=== PATIENT | female | born 2000 | race Caucasian/White ===

== ENCOUNTER 2021-07-06 08:00 | Day surgery (SDC) | payer BC ==
[2021-07-04 13:45] VITALS: BMI 25.8
[~2021-07-06 08:00] MED LIST: ACETAMINOPHEN TAB 500 MG TAB PO PRN; DEXAMETHASONE SOD PHOSPHATE 4 MG/ML 1 ML VIAL IV ONE; DEXAMETHASONE SOD PHOSPHATE 4 MG/ML 1 ML VIAL IV PRN; FAMOTIDINE 20 MG/2 ML VIAL IV PRN; HYDROmorphone 0.5 MG/0.5 ML SYRINGE IVP PRN; LIDOCAINE 1% (10MG/ML) FOR IV START INTRADERMA PRN; MELOXICAM 7.5 MG TAB PO PRN; MIDAZOLAM 2 MG/2 ML VIAL IV PRN; ONDANSETRON 4 MG/2 ML VIAL IVP ONE; ONDANSETRON 4 MG/2 ML VIAL IVP PRN
[2021-07-06] MEDS: OXYMETAZOLINE 0.05% NASL SPRAY 1 SPRAY BOTTLE EA NOSTRIL PRN ×5 (08:28→08:48)
[2021-07-06] MEDS: LACTATED RINGERS 1,000 ML IV SCH ×2 (08:38→09:21)
[2021-07-06] MEDS ORDERED: LIDOCAINE 1% INJ 10MG/ML (20 ML MDV) ONE (09:23)
[2021-07-06] MEDS ORDERED: ROCURONIUM 10 MG/ML (5 ML VIAL) IV ONE (09:23)
[2021-07-06] MEDS ORDERED: fentaNYL (PF) 50 MCG/ML 2 ML AMP ONE (09:23)
[2021-07-06] MEDS ORDERED: MIDAZOLAM 2 MG/2 ML VIAL ONE (09:23)
[2021-07-06] MEDS ORDERED: PROPOFOL 10 MG/ML 20 ML VIAL IV ONE (09:23)
[2021-07-06] MEDS ORDERED: LIDOCAINE 1%-EPI 1:100,000 20 ML VIAL SUBMUCOSAL ONE ×4 (09:28→09:43)
[2021-07-06] MEDS ORDERED: FLUORESCEIN STRIPS 1 MG STRIP MISCELLANE ONE (09:29)
[2021-07-06] MEDS ORDERED: LACTATED RINGERS 1,000 ML IV ONE (10:25)
[2021-07-06 11:03] VITALS: TEMP 97.2
--- NOTE | 2021-07-06 11:18 | P.OP ---
Date of Procedure: 07/06/21 Preoperative Diagnosis: Deviated nasal septum, hypertrophy of inferior nasal turbinates, chronic sinusitis, sinonasal polyps/ethmoids Postoperative Diagnosis: same Procedure(s) Performed: Septoplasty Bilateral submucosal resection of inferior nasal turbinates bilaterally Bilateral functional endoscopic sinus surgery and/with removal of ethmoid polyps Anesthesia: ELLIE Surgeon: Nathan Canas Estimated Blood Loss (ml): 15 Pathology: other (sinonasal) Condition: stable Disposition: PACU Indications for Procedure: Patient has had constant sinonasal issues and has failed medical therapy and complains of constant sinus drainage nasal congestion etc. Since she's failed medical therapy and after long discussion we decided to proceed forward with functional endoscopic sinus surgery septoplasty and turbinate surgery. All risks, benefits and alternative therapies were discussed. Consent was obtained and all questions were answered. Operative Findings: Patient had a left septal deviation with large obstructive inferior turbinates. Ethmoid polyps were seen throughout and purulent material and diseased tissue was seen in the maxillary sinuses. Description of Procedure: This patient was taken to the operative room and placed in the supine position. A general inhalation anesthetic was administered to the patient by the department of anesthesia with a functioning IV line in place. The patient was monitored throughout the entire case by the department of anesthesia. The eyes were taped shut for protection. The patient was placed in a slight reverse Trendelenburg position. The patient had previously utilize Afrin nasal spray preoperatively. The nose was evaluated and the septum lateral nasal wall and inferior turbinates were injected with lidocaine 1% with epinephrine 1 100,000 bilaterally. Approximately 10 minutes were allowed wait for full vasoconstrictive effects to take place. At this point a caudal incision was made over the caudal portion of the left septum down to the mucoperichondrium. A mucoperichondrial flap was elevated on the left side and dissection was carried with use of tunnels posteriorly. We then made a crossover incision through the cartilage to the contralateral side a nd for the mucoperichondrial flap development was performed to the extent of visualization on the contralateral side. After the cartilage was freed with use of several crosshatching incisions and removal of some redundant strips of septal cartilage, the septum was straightened and placed back in the midline. The septum was sutured fixated to the ovarian groove. Excellent straightening occurred and the septum was visibly straight. Incision was closed with a 40 rapid Vicryl. We utilized a running nonlocking fashion for closure of the incision. A quilting stitch was used to reapproximate the septal flaps with use of a 40 rapid Vicryl. We then entered the nose with a 0 and 30 Rush ashley endoscope. Previous to this we did inject the lateral nasal wall and middle turbinate and uncinate process with lidocaine 1% with epinephrine 1 100,000. Approximately 10 minutes were allowed wait for full vasoconstrictive effects to take place. With use of a microdebrider and a pediatric backbiter, we took down the uncinate process bilaterally. We then opened the maxillary sinuses bilaterally. We utilized a microdebrider for this and entered the maxillary sinuses and removed diseased ti ssue. This was done bilaterally. After the maxillary sinuses were opened and the diseased tissue was removed we entered the ethmoid bulla and with use of a microdebrider and up-biting latashas and Jaymie, we followed the fovea frontalis through the basal lamella and into the posterior ethmoid air cells and did a total ethmoidectomy. We removed the anterior ethmoid air cells with use of a microdebrider and up-biting boss. After all the anterior ethmoid air cells were removed we did the same in the posterior ethmoid. A total ethmoidectomy was completed in that fashion with removal of all the anterior and posterior ethmoid air cells and diseased tissue. We reinspected the skull base there is no signs of any orbital penetration or signs of any intracranial penetration. The sugical site was reinspected after the xerogel was placed and no bleeding was seen. Intranasal splints were inserted and fixated at the end of the case. We utilized Davis nasal splints. There will be removed and the patient returns to the office. Attention was then paid to the inferior turbinates. The bilateral inferior turbinates were hypertrophic and obstructive. We entered the anterior portion of the inferior turbinates with use of a microdebrider. We remove bone and submucosal elements with use of a microdebrider bilaterally. The inferior turbinates underwent a submucosal resection with removal of submucosal tissue and bone. We obtained a much better and normal in size for breathing. The inferior turbinates were then outfractured and compressed with a [employer] nasal elevator. Excellent airway was obtained and was symmetric bilaterally. No bleeding was encountered.
[2021-07-06] MEDS ORDERED: oxyCODONE-APAP 5-325MG 1 EACH TAB ONE (12:09)
[2021-07-06] MEDS ORDERED: oxyCODONE-APAP 5-325MG 1 EACH TAB PO ONE (12:11)
[2021-07-06 13:45] VITALS: BP 132/76; PULSE 92; RESP 20
== END 2021-07-06 12:52 | disposition home or self-care (01) ==
LOC: OR 08:00
PROVIDERS: ATTEND Otolaryngology
DX: J34.3 Hypertrophy of nasal turbinates (principal); J34.2 Deviated nasal septum; J32.9 Chronic sinusitis, unspecified; J33.8 Other polyp of sinus; J45.909 Unspecified asthma, uncomplicated; F32.A Depression, unspecified; Z82.49 Family history of ischemic heart disease and other diseases of the circulatory system; Z83.42 Family history of familial hypercholesterolemia; Z83.49 Family history of other endocrine, nutritional and metabolic diseases; Z79.51 Long term (current) use of inhaled steroids; Z79.899 Other long term (current) drug therapy; Z91.09 Other allergy status, other than to drugs and biological substances
CPT/HCPCS: 81025; 88305; 88300; 30520; 31255; 30140; J2250; J0171; J1100; J2405; J2001; J3010; J2704

== ENCOUNTER 2023-05-07 08:34 | Inpatient (IN) | payer BC ==
[2023-05-07] MEDS ORDERED: KETOROLAC 15 MG/ML 1 ML VIAL ONE (09:11)
[2023-05-07] MEDS ORDERED: MORPHINE SULFATE (PF) 0.3 MG/0.3 ML SYR ONE (09:11)
[2023-05-07] MEDS ORDERED: TRANEXAMIC 1,000 MG/100ML-NACL 1,000 MG in EMPTY BAG 1 BAG IV PRN (09:15)
[2023-05-07] MEDS ORDERED: OXYTOCIN 10 UNIT/ML 1 ML VIAL IM PRN (09:15)
[2023-05-07] MEDS ORDERED: CARBOPROST TROMETHAMINE 250 MCG/ML 1 ML AMP IM PRN (09:15)
[2023-05-07] MEDS ORDERED: miSOPROStoL 200 MCG TAB PO PRN (09:15)
[2023-05-07] MEDS ORDERED: OXYTOCIN 30 UNITS/500 ML NS 30 UNIT in SALINE 1 500ML.BAG IV SCH ×2 (09:15→10:00)
[2023-05-07] MEDS ORDERED: LACTATED RINGERS 1,000 ML IV ONE (09:15)
[2023-05-07] MEDS ORDERED: CITRIC ACID-SODIUM CITRATE 15 ML CUP PO ONE (09:15)
[2023-05-07] MEDS ORDERED: METHYLERGONOVINE 0.2 MG/ML 1 ML AMP IM PRN (09:15)
[2023-05-07 09:44] LABS: Basophils % (A) 0 %; Eosinophils # (A) 0.3 k/uL (0-0.7); Eosinophils % (A) 2 %; HCT 42.9 % (34.0-46.0); HGB 14.2 gm/dL (11.4-16.0); Lymphocytes # (A) 1.5 k/uL (1.0-4.8); Lymphocytes % (A) 11 %; MCH 28.7 pg (25.0-35.0); MCHC 33.2 g/dL (31.0-37.0); MCV 86.5 fL (80.0-100.0); Mean Platelet Volume 7.9; Monocytes # (A) 0.4 k/uL (0-1.0); Monocytes % (A) 3 %; Neutrophils # (A) 11.2 k/uL (1.3-7.7); Neutrophils % (A) 82 %; Platelet Count 274 k/uL (150-450); RBC 4.96 m/uL (3.80-5.40); RDW 13.1 % (11.5-15.5); WBC 13.5 k/uL (3.8-10.6)
[2023-05-07 09:54] LABS: Amphetamine Screen,Urine Not Detected (NotDetected); Barbiturate Screen,Urine Not Detected (NotDetected); Benzodiazepines Screen,Urine Not Detected (NotDetected); Cocaine Screen,Urine Not Detected (NotDetected); Methadone Screen, Urine Not Detected (NotDetected); Opiate Screen,Urine Not Detected (NotDetected); Oxycodone Screen, Urine Not Detected (NotDetected); Phencyclidine Screen,Urine Not Detected (NotDetected); Tricyclic Antidepressant,Urine Not Detected (NotDetected); Urn Cannabinoid Scrn Detected (NotDetected)
[2023-05-07] MEDS ORDERED: LANOLIN CREAM 5 GM TUBE TOPICAL PRN (09:57)
[2023-05-07] MEDS ORDERED: NALOXONE 0.4 MG/ML 1 ML VIAL IV PRN (09:57)
[2023-05-07] MEDS ORDERED: diphenhydrAMINE 25 MG CAP PO PRN (09:57)
[2023-05-07] MEDS ORDERED: ONDANSETRON 4 MG/2 ML VIAL IVP PRN (09:57)
[2023-05-07] MEDS ORDERED: diphenhydrAMINE 50 MG CAP PO PRN (09:57)
[2023-05-07] MEDS ORDERED: METOCLOPRAMIDE 5 MG/ML 2 ML VIAL IVP PRN (09:57)
[2023-05-07] MEDS ORDERED: diphenhydrAMINE 50 MG/ML 1 ML VIAL IVP PRN ×2 (09:57)
[2023-05-07] MEDS ORDERED: ZOLPIDEM 5 MG TAB PO PRN (09:57)
[2023-05-07] MEDS ORDERED: SIMETHICONE 80 MG CHEWABLE PO PRN (09:57)
[2023-05-07] MEDS: LACTATED RINGERS 1,000 ML IV SCH ×2 (10:12→23:47)
[2023-05-07] MEDS: ACETAMINOPHEN TAB 500 MG TAB PO SCH ×2 (13:00→20:07)
[2023-05-07] MEDS: KETOROLAC 15 MG/ML 1 ML VIAL IVP SCH ×2 (15:37→23:45)
[2023-05-07] MEDS: IBUPROFEN 600 MG TAB PO SCH ×2 (15:40→23:38)
[2023-05-07] MEDS: SENNOSIDES-DOCUSATE SODIUM 1 EACH TAB PO SCH (20:07)
[2023-05-08] MEDS: ACETAMINOPHEN TAB 500 MG TAB PO SCH ×4 (01:51→19:56)
[2023-05-08] MEDS: LACTATED RINGERS 1,000 ML IV SCH (01:54)
[2023-05-08] MEDS: IBUPROFEN 600 MG TAB PO SCH ×3 (05:05→17:29)
[2023-05-08 07:06] LABS: Basophils % (A) 0 %; Eosinophils # (A) 0.1 k/uL (0-0.7); Eosinophils % (A) 1 %; HCT 33.7 % (34.0-46.0); Lymphocytes % (A) 19 %; MCH 28.6 pg (25.0-35.0); MCHC 32.9 g/dL (31.0-37.0); MCV 86.7 fL (80.0-100.0); Mean Platelet Volume 7.7; Monocytes # (A) 0.4 k/uL (0-1.0); Monocytes % (A) 4 %; Neutrophils # (A) 7.7 k/uL (1.3-7.7); Neutrophils % (A) 74 %; Platelet Count 239 k/uL (150-450); RBC 3.89 m/uL (3.80-5.40); RDW 13.3 % (11.5-15.5); WBC 10.4 k/uL (3.8-10.6)
[2023-05-08 07:22] LABS: HGB 11.1 gm/dL (11.4-16.0)
[2023-05-08] MEDS: KETOROLAC 15 MG/ML 1 ML VIAL IVP SCH (07:22)
[2023-05-08] MEDS: SENNOSIDES-DOCUSATE SODIUM 1 EACH TAB PO SCH ×2 (07:58→19:56)
--- NOTE | 2023-05-08 08:41 | P.PNOBGPC ---
Subjective - Subjective Principal diagnosis: Status post primary section postoperative day #1 Interval history: Patient is doing well. She is ambulating. She is eating regular diet. She has been urinating. She has not passed flatus or bowel movement yet. Feeding is going well with breast-feeding. Pain has been minimal. Bleeding has been minimal. Patient reports: Reports appetite normal, Reports voiding normally, Reports pain well controlled, Reports ambulating normally : nursing well Objective - Vital Signs Latest vital signs: Vital Signs Temp Pulse Resp BP Pulse Ox 05/08/23 08:00 98.4 F 75 16 106/67 97 05/08/23 04:00 98.2 F 69 16 102/64 97 05/08/23 00:00 98.0 F 74 16 107/68 96 05/07/23 20:00 98.2 F 84 16 105/65 96 05/07/23 15:56 98.5 F 89 18 141/70 97 05/07/23 12:00 96.6 F L 82 18 115/59 99 05/07/23 11:30 96.1 F L 92 18 119/77 100 05/07/23 11:00 96.2 F L 70 18 129/68 98 05/07/23 10:45 96.2 F L 67 18 122/68 100 05/07/23 10:29 95.9 F L 65 16 127/66 100 05/07/23 10:15 96.0 F L 71 18 134/76 100 05/07/23 10:08 96.6 F L 73 18 103/62 100 05/07/23 09:19 88 18 163/95 Intake and Output 05/07/23 05/08/23 05/08/23 22:59 06:59 14:59 Output Total 300 1550 Balance -300 -1550 Output: Urine 300 1550 Uretheral ([place]) 300 - Exam Extremities: Present: normal. Absent: tenderness Abdomen: Present: normal appearance, soft (Positive bowel sounds 4). Absent: distention, tenderness Incision: Present: normal, dry, intact. Absent: erythematous Uterus: Present: normal, firm. Absent: tenderness - Labs Labs: Abnormal Lab Results - Last 24 Hours (Table) 05/07/23 05/07/23 05/08/23 Range/Units 09:10 09:10 06:41 WBC 13.5 H (3.8-10.6) k/uL Hgb 11.1 L D (11.4-16.0) gm/dL Hct 33.7 L (34.0-46.0) % Neutrophils # 11.2 H (1.3-7.7) k/uL U Marijuana (THC) Screen Detected H (NotDetected) Assessment and Plan Assessment: Status post primary low transverse section postoperative day #1 Plan: Patient will continue with ambulation. May shower. Continue with postoperative and care. Anticipate probable discharge home tomorrow.
--- NOTE | 2023-05-08 08:53 | P.HPOB ---
History of Present Illness H&P Date: 05/07/23 Chief Complaint: Contractions, spontaneous rupture of membranes This is a 22-year-old female 1 para 0 with an estimated date of confinement of 05/17/2023, estimated gestational age of 38-4/7 weeks, who presented to labor and delivery with complaints of contractions since approximately 1 PM the day before and spontaneous rupture membranes at approximately 6 AM with thick meconium noted. course was uncomplicated. She complained of strong regular contractions and was found to be 4-5 cm on admission. Thick meconium was noted. While in triage she had an approximate 8 and a long deceleration to the 70s with slow return to baseline. labs: Blood type-O+ Antibody screen-negative Rubella-immune Hepatitis B surface antigen-negative RPR-nonreactive Gonorrhea/chlamydia/Trichomonas-negative HIV-nonreactive Group B strep coccus-negative One hour Glucola-135 Three-hour Glucola-within normal limits Obstetrical history: . Gynecologic history: No history of sexually transmitted diseases. Social history: She is . She is unemployed. Review of Systems Constitutional: Denies chills, Denies fever Eyes: denies blurred vision, denies pain Ears, nose, mouth and throat: Denies headache, Denies sore throat Cardiovascular: Denies chest pain, Denies shortness of breath Respiratory: Denies cough Gastrointestinal: Reports abdominal pain (And tractions), Denies diarrhea, Denie s nausea, Denies vomiting Genitourinary: Reports pelvic pain, Reports Musculoskeletal: Reports low back pain Integumentary: Denies pruritus, Denies rash Neurological: Denies numbness, Denies weakness Psychiatric: Reports anxiety, Reports depression Past Medical History Past Medical History: Asthma Additional Past Medical History / Comment(s): SINUS -CHRONIC INFECTION History of Any Multi-Drug Resistant Organisms: None Reported Past Surgical History: No Surgical Hx Reported Past Anesthesia/Blood Transfusion Reactions: No Reported Reaction Additional Past Anesthesia/Blood Transfusion Reaction / Comment(s): FIRST ANESTHETIC Past Psychological History: Anxiety, Depression Smoking Status: Never smoker Past Alcohol Use History: Occasional Past Drug Use History: Marijuana Additional Drug Use History / Comment(s): DAILY USE- INSTRUCTED TO HOLD FOR 24 HOURS PRIOR TO PROCEDURE. - Past Family History Mother Additional Family Medical History / Comment(s): Anxiety and depression Medications and Allergies Home Medications Medication Instructions Recorded Confirmed Type Vit No.179/Iron/Folic 1 each PO 05/08/23 History [ Tablet] Allergies Allergy/AdvReac Type Severity Reaction Status Date / Time No Known Allergies Allergy Verified 07/06/21 08:24 Exam Osteopathic Statement: *. No significant issues noted on an osteopathic structural exam other than those noted in the History and Physical/Consult. Vital Signs Temp Pulse Resp BP Pulse Ox 05/08/23 08:00 98.4 F 75 16 106/67 97 05/08/23 04:00 98.2 F 69 16 102/64 97 05/08/23 00:00 98.0 F 74 16 107/68 96 05/07/23 20:00 98.2 F 84 16 105/65 96 05/07/23 15:56 98.5 F 89 18 141/70 97 05/07/23 12:00 96.6 F L 82 18 115/59 99 05/07/23 11:30 96.1 F L 92 18 119/77 100 05/07/23 11:00 96.2 F L 70 18 129/68 98 05/07/23 10:45 96.2 F L 67 18 122/68 100 05/07/23 10:29 95.9 F L 65 16 127/66 100 05/07/23 10:15 96.0 F L 71 18 134/76 100 05/07/23 10:08 96.6 F L 73 18 103/62 100 05/07/23 09:19 88 18 163/95 Intake and Output 05/07/23 05/08/23 05/08/23 22:59 06:59 14:59 Output Total 300 1550 Balance -300 -1550 Output: Urine 300 1550 Uretheral ([place]) 300 Gen.: Well-developed well-nourished female in mild acute distress due to co ntractions HEENT: Within normal limits Heart: Regular rate and rhythm Lungs: Clear to auscultation bilaterally Abdomen: Cervix: 4-1/2 cm/70%/-2 station with thick meconium noted and positive amnisure. heart tones: 120s baseline with average variability and 8 minute long deceleration to the 60s and 70s was noted with slow return to baseline. Contractions: Every 2-3 minutes. Extremities: Negative Homans Results Result Diagrams: 05/08/23 06:41 Abnormal Lab Results - Last 24 Hours (Table) 05/07/23 05/07/23 05/08/23 Range/Units 09:10 09:10 06:41 WBC 13.5 H (3.8-10.6) k/uL Hgb 11.1 L D (11.4-16.0) gm/dL Hct 33.7 L (34.0-46.0) % Neutrophils # 11.2 H (1.3-7.7) k/uL U Marijuana (THC) Screen Detected H (NotDetected) Assessment and Plan Assessment: Intrauterine at 38-4/7 weeks Category 2 heart tones Meconium stained amniotic fluid. (1) 38 weeks gestation of Current Visit: Yes Status: Acute Code(s): Z3A.38 - 38 WEEKS GESTATION OF SNOMED Code(s): 09983350 (2) Non-reassuring heart tones complicating , antepartum Current Visit: Yes Status: Acute Code(s): O36.8390 - MATERN CARE FOR ABNLT FETL HRT RATE OR RHYM, UNSP TRI, UNSP SNOMED Code(s): 423702803 (3) Meconium in amniotic fluid Current Visit: Yes Status: Acute Code(s): P96.83 - MECONIUM STAINING SNOMED Code(s): 245862876 Plan: Patient her were counseled on the need for urgent section due to prolonged bradycardia with slow return to baseline. A patient centered huddle was carried out due to category 2 heart tones where risks and benefits were discussed and patient is agreeable to proceed with urgent primary section. I have discussed the risks, benefits, and alternative therapies for the above- mentioned procedure and for both sedation/anesthesia as well as necessary blood products administration, if indicated, as they pertain to this patient. The patient has indicated her understanding and acceptance of the risks and procedures discussed.
--- NOTE | 2023-05-08 08:58 | P.OP ---
Date of Procedure: 05/08/23 Preoperative Diagnosis: 1. Intrauterine at 38-4/7 weeks. 2. Category 2 heart tones. 3. Meconium. Postoperative Diagnosis: Same Procedure(s) Performed: Primary low transverse section Anesthesia: spinal (Duramorph) Surgeon: Kaylin Stephen Forder Operator #1: Sho Chang Estimated Blood Loss (ml): 600 Pathology: other (Placenta) Condition: stable Disposition: floor Indications for Procedure: This is a 22-year-old female 1 para 0 at 38-4/7 weeks who presented with rupture of membranes with thick meconium and contractions. She was noted to be 4-1/2 cm on arrival to triage. While in triage she had an approximate 8 minute deceleration to the 60s and 70s with slow return to baseline. A patient centered huddle was carried out regarding the category 2 heart tones. The decision was a mutual decision to proceed with primary section. I have discussed the risks, benefits, and alternative therapies for the above- mentioned procedure and for both sedation/anesthesia as well as necessary blood products administration, if indicated, as they pertain to this patient. The patient has indicated her understanding and acceptance of the risks and procedures discussed. Operative Findings: A viable female infant is noted in the occiput posterior lie with Apgars of 9 at 1 minute and 9 at 5 minutes and weight of 5 lbs. 7 oz. Thick meconium was noted. Normal uterus tubes and ovaries are noted. Description of Procedure: The patient is taken to the operating room where she is placed in the dorsal supine position with leftward tilt after spinal Duramorph anesthesia is given. She is prepped and draped in the normal sterile fashion. Skin was tested and found to be adequately anesthetized. A Pfannenstiel skin incision was made with a scalpel. A second knife was used to carry the incision down to the underlying layer of fascia. The fascia was nicked in the midline with a scalpel and then extended laterally bilaterally with Guo scissors. The anterior lip of the fascia was grasped with 2 Fox clamps and then dissected off the underlying rectus muscle in the midline with Guo scissors. The inferior aspect of the fascial incision was grasped with 2 Fox clamps and dissected off the underlying rectus muscle and the midline with Guo scissors. Next the peritoneum layer was tented up with 2 hemostats and then entered sharply with the scalpel. The incision is extended superiorly and inferiorly with Metzenbaum scissors. Next a DeLee retractor is placed. The vesicouterine peritoneum is entered sharply with Metzenbaum scissors and extended laterally bilaterally with Metzenbaum scissors and then the bladder flap is pushed inferiorly. The lower uterine segment is incised in transverse fashion with the scalpel and then blunt ly entered with a hemostat. Thick meconium fluid is noted. The incision was then extended laterally bilaterally with 2 fingers. Next the 's head is delivered through the incision to be in occiput posterior lie deep in the pelvis. Nose and mouth are bulb suctioned. The remainder of the infant is easily delivered and placed on mother's abdomen. Cord is clamped and cut. Infant is taken to warmer by nursing staff. Uterine fundus is gently massaged and placenta is delivered manually. Uterus is exteriorized and cleared of all clots and debris. Uterine incision is closed with 0 Vicryl suture in a running locked fashion. There was a slight extension of the incision on the right side inferiorly. A second layer of 0 Vicryl suture is used in a running fashion for hemostasis. Once adequate hemostasis as assured, the vesicouterine peritoneum is reapproximated with 2-0 Vicryl suture in a running fashion. Posterior cul-de-sac is suctioned of all clots and debris. Uterus is returned to the abdomen. Incision is noted to be hemostatic. Peritoneal layer is closed with 0 Vicryl suture in a running fashion. Muscle layer is reapproximated with 0 Vicryl suture in interrupted fashion. Fascia layer is then closed with 0 PDS suture with 2 sutures meeting in the midline and the knots buried in either side and in the midline. The subcutaneous tissue was then closed with 2-0 Vicryl suture. Skin layer was then closed with trevon. All sponge and needle counts are correct. The patient is taken to recovery room in stable condition.
[2023-05-09] MEDS: IBUPROFEN 600 MG TAB PO SCH ×3 (00:57→10:00)
[2023-05-09 01:10] VITALS: RESP 16
[2023-05-09] MEDS: ACETAMINOPHEN TAB 500 MG TAB PO SCH ×3 (03:21→13:00)
--- NOTE | 2023-05-09 09:08 | P.DS ---
Providers Date of admission: 05/07/23 08:58 Expected date of discharge: 05/09/23 Attending physician: Kaylin Stephen Primary care physician: Stated None - Discharge Diagnosis(es) (1) 38 weeks gestation of Current Visit: Yes Status: Acute (2) Non-reassuring heart tones complicating , antepartum Current Visit: Yes Status: Acute (3) Meconium in amniotic fluid Current Visit: Yes Status: Acute Hospital Course: Since a 22-year-old female 1 para 0 at 38-4/7 weeks who presented in active labor with thick meconium noted. She had a prolonged deceleration and therefore underwent a primary low transverse section under spinal Duramorph anesthesia on 05/07/2023 and delivered a viable female with scores of 9 at 1 minute and 9 at 5 minutes and weight of 5 lbs. 7 o z. Her postoperative and course have been uncomplicated. Lochia is decreasing. Her pain is fairly well controlled with ibuprofen and Tylenol. She is passing flatus and bowel movement. She is breast-feeding. Vital signs are stable. Abdomen is soft with positive bowel sounds 4. Incision is clean dry and intact. Extremities show negative Homans. Impression is status post primary low transverse section postoperative day #2. Plan is to discharge home today. Routine postoperative and instructions are given. Mario will be removed and Steri-Strips placed prior to discharge. She is advised to follow-up in the office in 6 weeks for a visit and in 1 week for a postoperative visit. She is advised to call the office if she has any further questions or concerns prior to her appointment time. She has a breast pump at home. She will be given a prescription for ibuprofen. Procedures: Primary low transverse section for delivery of a viable female infant on 05/07/2023 Patient Condition at Discharge: Stable Plan - Discharge Summary Discharge Rx Participant: Yes New Discharge Prescriptions: New Ibuprofen [Motrin] 600 mg PO Q6H #60 tab Acetaminophen Tab [Tylenol] 1,000 mg PO Q6H tab Continue Vit No.179/Iron/Folic [ Tablet] 1 each PO Discharge Medication List Vit No.179/Iron/Folic [ Tablet] 1 each PO 05/08/23 [History] Acetaminophen Tab [Tylenol] 1,000 mg PO Q6H tab 05/09/23 [Rx] Ibuprofen [Motrin] 600 mg PO Q6H #60 tab 05/09/23 [Rx] Follow up Appointment(s)/Referral(s): Kaylin Stephen DO [Doctor of Osteopathic Medicine] - 1 Week Activity/Diet/Wound Care/Special Instructions: Instructions 1. Do not begin any exercise program for 3 weeks. 2. Do not resume sexual relations for 3 weeks or longer if uncomfortable. 3. You may take tub baths or showers at any time. 4. You may use tampons if desired after 3 weeks. 5. Keep the area of episiotomy (stitches) clean and dry. 6. If you are not nursing, wear a good fitting, supportive bra during the day and limit fluid intake for at least 1 week to prevent breast engorgement. 7. Call the office, [phone], within the next week to make appointment for your 6 week checkup if it has not already been made. 8. Report any of the following occurrences to the doctor promptly: a. Heavy, excessive bleeding b. Chills, fever c. Burning or frequency of urination d. Pain or redness and breasts if nursing e. Increasing pain or swelling in episiotomy (stitches). In addition to the above instructions, the following additional should be followed: 1. No heavy lifting or straining (exercising) until after 6 week checkup. 2. Keep abdominal incision clean and dry: You may wear a dressing if more comfortable. 3. Make office appointment for 10 days after going home or as instructed by her doctor. Discharge Disposition: HOME SELF-CARE
[2023-05-09] MEDS: SENNOSIDES-DOCUSATE SODIUM 1 EACH TAB PO SCH (09:21)
[2023-05-09 10:53] VITALS: BP 128/79; PULSE 82; TEMP 97.9
--- NOTE | 2023-05-10 09:16 | P.MSEPDOC ---
Presenting Problems - Arrival Data Date of Arrival on Unit: 05/07/23 Time of Arrival on Unit: 08:40 Mode of Transport: Ambulatory - Complaint OB-Reason for Admission/Chief Complaint: Other Comment: rule out labour Medical History - Information : 1 Para: 0 Term: 0 : 0 Abortions: Spontaneous or Elective: 0 Number of Living Children: 0 - Gestational Age Gestational Age by JUDSON (wks/days): 38 Weeks and 4 Days Review of Systems - Review of Systems Constitutional: No problems Breast: No problems ENT: No problems Cardiovascular: No problems Respiratory: No problems Gastrointestinal: No problems Genitourinary: No problems Musculoskeletal: No problems Neurological: No problems Skin: No problems Vital Signs - Temperature Temperature: 97.9 F Temperature Source: Oral - Pulse Right Brachial Pulse Rate: 82 Pulse Assessment Method: Pulse Oximetry - Respirations Respiratory Rate: 16 Oxygen Delivery Method: Room Air O2 Sat by Pulse Oximetry: 97 - Blood Pressure Right Arm Blood Pressure: 128/79 Blood Pressure Mean: 95 Blood Pressure Source: Automatic Cuff Medical Screen Scoring - Cervical Exam Dilation (cm): 4.5 Effacement (%): 80 Station: -2 Membranes: Ruptured - Assessment - Baby A Heart Rate - NICHD Category: Category II (Indeterminate) NST: Non-reactive Physician Notification - Physician Notified Physician Notified Date: 05/07/23 Physician Notified Time: 08:50 Physician: Sho Chang Order Received: Yes - Notification Comment Comment: reported prolonged decel, mec fluid, bps Maternal Triage Index - Maternal Triage Index Presenting for scheduled procedure w/no complaint: Yes - Scheduled/Requesting Priority 5 Scheduled/Requesting Priority 5: No Disposition - Disposition OB Disposition: Admit, LDRP Suite Discharge Date: 05/09/23 Discharge Time: 13:20 I agree with the RN Medical Screening Exam: Yes Case reviewed; plan agreed upon as documented in EMR&OBIX.: Yes Diagnosis: ENCOUNTER FOR FULL-TERM UNCOMPLICATED DELIVERY
--- NOTE | 2023-05-10 10:51 | P.PN ---
Progress Note - Text 05/08/23 631am 52-year-old female status post with spinal Duramorph. Patient seen and evaluated, she has a VAS of 2 with no complaints of nausea vomiting. She does have mild pruritus which should subside
== END 2023-05-09 13:20 | disposition home or self-care (01) | DRG 787 ==
LOC: FBPOP 08:34 → 4FBP 08:58
PROVIDERS: ADMIT Obstetrics & Gynecology; ATTEND Obstetrics & Gynecology
PROC: 10D00Z1 Extraction of Products of Conception, Low, Open Approach (ICD-10-PCS; principal; 2023-05-08)
DX: O77.0 Labor and delivery complicated by meconium in amniotic fluid (principal); O99.324 Drug use complicating childbirth; O99.344 Other mental disorders complicating childbirth; F41.9 Anxiety disorder, unspecified; F32.A Depression, unspecified; O99.52 Diseases of the respiratory system complicating childbirth; O99.73 Diseases of the skin and subcutaneous tissue complicating the puerperium; L29.9 Pruritus, unspecified; J45.909 Unspecified asthma, uncomplicated; F12.90 Cannabis use, unspecified, uncomplicated; O76 Abnormality in fetal heart rate and rhythm complicating labor and delivery; Z28.310 Unvaccinated for COVID-19; Z3A.38 38 weeks gestation of pregnancy; Z37.0 Single live birth
CPT/HCPCS: 59025; 80306; 84112; 85025; 86850; 86900; 86901; 99213